=== PATIENT | female | born 1970 | race Caucasian/White ===

== ENCOUNTER 2021-01-30 07:55 | Emergency (ER) | payer BC, OTHER ==
[~2021-01-30] VITALS: Ht 157.5 cm; Wt 74.8 kg
[2021-01-30] MEDS ORDERED: ONDANSETRON 4 MG/2 ML VIAL IV ONE ×2 (08:30→11:30)
--- NOTE | 2021-01-30 08:30 | NUR ---
Seen and examined by Dr. Moreno at [facility]B.
[2021-01-30] MEDS ORDERED: ONDANSETRON 4 MG/2 ML VIAL ONE ×2 (08:43→11:41)
[2021-01-30] MEDS ORDERED: MAG HYDROX/AL HYDROX/SIMETH 30 ML LIQUID UDC PO ONE (08:45)
[2021-01-30] MEDS ORDERED: FAMOTIDINE. 20 MG/2 ML VIAL IV ONE ×2 (08:45→09:02)
[2021-01-30] MEDS ORDERED: MORPHINE SULFATE 4 MG/1 ML DISP.SYRIN IV ONE (08:45)
[2021-01-30] MEDS ORDERED: IV NORMAL SALINE 100 ML BAG IV ONE (08:45)
[2021-01-30 08:55] LABS: HEMATOCRIT 39.2 % (31.2-41.9); MEAN CORPUSCULAR HEMOGLOBIN 29.7 uug (24.7-32.8); MEAN CORPUSCULAR VOLUME 84.9 fL (75.5-95.3); PLATELET COUNT (AUTO) 268 K/uL (179-408)
[2021-01-30] MEDS ORDERED: MAG HYDROX/AL HYDROX/SIMETH 30 ML LIQUID UDC ONE (09:02)
[2021-01-30] MEDS ORDERED: MORPHINE SULFATE 4 MG/1 ML DISP.SYRIN ONE (09:02)
[2021-01-30 09:09] LABS: BILIRUBIN,TOTAL 0.4 mg/dL (0.2-1.0); CREATININE 0.9 mg/dL (0.6-1.3); POTASSIUM 3.7 mmol/L (3.5-5.1)
--- NOTE | 2021-01-30 11:30 | NUR ---
NS IV 1000 CC INFUSED. UNABLE TO PUT END TIME IN MAR.
[2021-01-30] MEDS ORDERED: FAMO-132 PO (11:31)
[2021-01-30] MEDS ORDERED: ONDA4TAB11 PO (11:32)
--- NOTE | 2021-01-30 12:10 | NUR ---
Pt has been cleared for discharge. IV removed. Catheter intact and site benign. Pressure and 4x4 gauze applied to site. No bleeding noted. Written and verbal after care instructions given. Patient verbalizes understanding of instructions. Stressed follow up or return to ER for worsening s/s. Patient discharged to home in stable condition.
[2021-01-30 12:18] VITALS: BP 137/80
== END 2021-01-30 12:20 | disposition home or self-care (01) ==
LOC: ER 07:55
DX: R10.13 Epigastric pain (principal); R11.0 Nausea; E07.9 Disorder of thyroid, unspecified; K80.20 Calculus of gallbladder without cholecystitis without obstruction
CPT/HCPCS: 36415; 76705; 80053; 84484; 85025; 96374; 96375; 96376; 99284; J2270; J2405 ×2; J3490; 70030-TC

== ENCOUNTER 2021-09-21 01:28 | Emergency (ER) | payer BC, OTHER ==
[~2021-09-21] VITALS: Ht 160 cm; Wt 77.1 kg
[~2021-09-21 01:28] MED LIST: FAMO-132 PO; ONDA4TAB11 PO
--- NOTE | 2021-09-21 01:50 | NUR ---
Dr. Abebe at bedside for MSE.
[2021-09-21] MEDS ORDERED: IV NORMAL SALINE 1000 ML BAG IV ONE (02:00)
[2021-09-21] MEDS ORDERED: PROCHLORPERAZINE EDISYLATE 10 MG/2 ML VIAL IV ONE ×2 (02:00→06:30)
[2021-09-21] MEDS ORDERED: HYDROMORPHONE 1 MG/1 ML DISP.SYRIN IV ONE ×2 (02:00→03:15)
[2021-09-21] MEDS ORDERED: PROCHLORPERAZINE EDISYLATE 10 MG/2 ML VIAL ONE ×2 (02:02→06:26)
[2021-09-21] MEDS ORDERED: HYDROMORPHONE 2 MG/1 ML DISP.SYRIN ONE (02:02)
[2021-09-21 02:09] LABS: HEMATOCRIT 41.2 % (31.2-41.9); MEAN CORPUSCULAR HEMOGLOBIN 29.5 uug (24.7-32.8); MEAN CORPUSCULAR VOLUME 84.2 fL (75.5-95.3); PLATELET COUNT (AUTO) 278 K/uL (179-408)
[2021-09-21 02:25] LABS: BILIRUBIN,DIRECT 0.1 mg/dL (0.0-0.2); BILIRUBIN,TOTAL 0.4 mg/dL (0.2-1.0); POTASSIUM 3.7 mmol/L (3.5-5.1)
[2021-09-21] MEDS ORDERED: SWABABLE VALVE TRANSFER SET EA MC ONE (02:30)
[2021-09-21] MEDS ORDERED: IOHEXOL 300MG/ML 100 ML INFUS..BTL ONE (02:30)
[2021-09-21] MEDS ORDERED: IV NORMAL SALINE 250 ML IV ONE (02:31)
--- NOTE | 2021-09-21 02:39 | NUR ---
Pt out of ER for CT.
--- NOTE | 2021-09-21 03:00 | NUR ---
Patient back to ER from CT.
--- NOTE | 2021-09-21 03:19 | NUR ---
ultrasound being performed at bedside.
[2021-09-21 04:05] LABS: *BILIRUBIN,URIN NEGATIVE (NEGATIVE); *CLARITY,URINE CLEAR (CLEAR); *COLOR,URINE YELLOW (YELLOW); *KETONES,URINE NEGATIVE (NEGATIVE); *UROBILINOGEN,URINE 0.2 E.U./dl (NORMAL); LEUKOCYTE ESTERASE ,URINE NEGATIVE (NEGATIVE); NITRITE, URINE NEGATIVE (NEGATIVE); UGLUCOSE NEGATIVE (NEGATIVE)
[2021-09-21 04:12] LABS: *BLOOD, URINE TRACE (NEGATIVE)
[2021-09-21 04:13] LABS: *URINE HCG, QUAL NEGATIVE (NEGATIVE)
[2021-09-21] MEDS ORDERED: PROC-11 PO (06:19)
[2021-09-21] MEDS ORDERED: OXYC-128 PO (06:19)
--- NOTE | 2021-09-21 06:33 | NUR ---
Patient discharged to home in stable condition. Written and verbal after care instructions given. Patient verbalizes understanding of instructions. Stressed follow up or return to ER for worsening s/s.
[2021-09-21 06:34] VITALS: BP 140/80
[2021-09-21 08:55] LABS: BACTERIA,URINE NONE SEEN /HPF (NONE SEEN); SQUAMOUS EPITHELIAL CELL,UR FEW /HPF (NONE SEEN); WBC,URINE 0-3 /HPF (0-3)
== END 2021-09-21 06:34 | disposition home or self-care (01) ==
LOC: ER 01:33
DX: K80.70 Calculus of gallbladder and bile duct without cholecystitis without obstruction (principal); R10.84 Generalized abdominal pain; R11.2 Nausea with vomiting, unspecified; E07.9 Disorder of thyroid, unspecified; R94.31 Abnormal electrocardiogram [ECG] [EKG]
CPT/HCPCS: 36415; 74177; 76705; 80048; 80076; 81001; 83690; 84703; 85025; 93005; 96361; 96374; 96375; 96376; 99285; J0780 ×2; J1170; J7040; Q9967; A4663